=== PATIENT | male | born 1990 | race Two or more races ===

== ENCOUNTER 2023-03-28 16:44 | Inpatient (IN) | payer OTHER ==
[~2023-03-28] VITALS: Ht 182.9 cm; Wt 101.4 kg
[2023-03-28 18:09] LABS: Basophils # (auto) 0.1 10 ^3/uL (0-0.2); Basophils % (auto) 0.3 % (0.0-2.0); Eosinophils # (auto) 0.2 10 ^3/uL (0-0.8); Eosinophils % (auto) 1.2 % (0.0-7.0); Hematocrit 42.4 % (41.0-53.0); Hemoglobin 14.1 g/dL (13.5-17.5); Lymphocytes # (auto) 2.2 10 ^3/uL (0.4-5.4); Lymphocytes % (auto) 13.8 % (10.0-50.0); Mean Corpuscular Hemoglobin 28.8 pg (28.0-32.0); Mean Corpuscular Hgb Conc. 33.3 g/dL (32.0-36.0); Mean Corpuscular Volume 86.7 fL (80.0-100.0); Monocytes # (auto) 1.5 10 ^3/uL (0-1.3); Monocytes % (auto) 9.6 % (0.0-12.0); Neutrophils % (auto) 75.1 % (37.0-80.0); Red Blood Cells 4.89 10^6/uL (4.5-5.90); Red Cell Distribution Width 13.1 % (11.8-14.3)
[2023-03-28 18:28] LABS: Alanine Aminotransferase 37 U/L (7-40); Alkaline Phosphatase 84 U/L (46-116); Anion Gap 9 (5-15); BUN/Creatinine Ratio 12.2 (10.0-20.0); Blood Urea Nitrogen 10 mg/dL (9-23); Calcium 9.2 mg/dL (8.5-10.1); Carbon Dioxide 27 mmol/L (20-30); Chloride 102 mmol/L (98-107); Glucose 108 mg/dL (74-106); Potassium 3.8 mmol/L (3.5-5.1); Sodium 138 mmol/L (136-145)
[2023-03-28 18:29] LABS: Albumin 4.5 g/dL (3.2-4.8); Aspartate Aminotransferase 31 U/L (13-40); Bilirubin, Total 0.6 mg/dL (0.2-1.0)
[2023-03-28 19:20] LABS: Urine Bacteria NONE SEEN /hpf (None Seen); Urine Blood 1+ /uL (Negative); Urine Clarity Clear (Clear); Urine Color Yellow (Yellow); Urine Mucus FEW (None Seen); Urine Protein, UAD 1+ (Negative); Urine Specific Gravity 1.026 (1.001-1.035); Urine WBC 1 /hpf (0 - 3); Urine pH 6.5 (5.0-8.0)
[2023-03-28] MEDS ORDERED: MORPHINE SULFATE INJ 2 MG/ml SYRG IV PRN (21:15)
[2023-03-28] MEDS ORDERED: ONDANSETRON HCL 4 MG/2 ML VIAL IV PRN (21:15)
[2023-03-28] MEDS: D5W/SOD CHLO 0.9% 1,000 ML IV SCH (21:15)
[2023-03-28 23:05] VITALS: PULSE 18; RESP 18; O2SAT 97
[2023-03-28] MEDS: PIPERACILLIN-TAZO 4.5GM 100 ML IV ONE (23:19)
[2023-03-29] VITALS (8 sets, daily range): BP systolic 121–139; BP diastolic 68–86; PULSE 55–95; RESP 16–20; TEMP 97.9–98.6; O2SAT 95–99
[2023-03-29] MEDS: metroNIDAZOLE 500MG/100ML 100 ML IV SCH (02:09)
[2023-03-29] MEDS: MEROPENEM 1GM IVPB 50 ML IV SCH (02:09)
[2023-03-29 06:58] LABS: Basophils # (auto) 0 10 ^3/uL (0-0.2); Basophils % (auto) 0.2 % (0.0-2.0); Eosinophils # (auto) 0.1 10 ^3/uL (0-0.8); Hematocrit 38.4 % (41.0-53.0); Hemoglobin 13.1 g/dL (13.5-17.5); Lymphocytes # (auto) 2.4 10 ^3/uL (0.4-5.4); Lymphocytes % (auto) 15.8 % (10.0-50.0); Mean Corpuscular Hemoglobin 29.3 pg (28.0-32.0); Mean Corpuscular Volume 86.3 fL (80.0-100.0); Monocytes # (auto) 1.5 10 ^3/uL (0-1.3); Neutrophils # (auto) 11.3 10 ^3/uL (1.6-8.6); Red Blood Cells 4.45 10^6/uL (4.5-5.90); Red Cell Distribution Width 12.9 % (11.8-14.3); White Blood Cell 15.4 10^3/uL (4.4-10.8)
[2023-03-29 07:12] LABS: Alanine Aminotransferase 34 U/L (7-40); Alkaline Phosphatase 74 U/L (46-116); Anion Gap 8 (5-15); Calcium 9.1 mg/dL (8.7-10.4); Carbon Dioxide 27 mmol/L (20-30); Chloride 102 mmol/L (98-107); Potassium 3.5 mmol/L (3.5-5.1); Sodium 137 mmol/L (136-145)
[2023-03-29 07:14] LABS: Glucose 120 mg/dL (74-106)
[2023-03-29 07:15] LABS: BUN/Creatinine Ratio 8.9 (10.0-20.0); Blood Urea Nitrogen 7 mg/dL (9-23)
[2023-03-29 07:16] LABS: Albumin 4.4 g/dL (3.2-4.8); Aspartate Aminotransferase 19 U/L (13-40)
[2023-03-29 07:17] LABS: Bilirubin, Total 0.9 mg/dL (0.2-1.0); Total Protein 7.6 g/dL (5.7-8.2)
[2023-03-29] MEDS: cefTRIAXone 1GM/50ML D5W 50 ML IV SCH (09:07)
[2023-03-30] VITALS (7 sets, daily range): BP systolic 112–135; BP diastolic 63–79; PULSE 58–85; RESP 16–20; TEMP 98.1–98.5; O2SAT 94–97
[2023-03-30 08:43] LABS: INR 1.18 (0.9-1.15); Prothrombin Time 12.3 sec (9.3-11.8)
[2023-03-30] MEDS: OMNIPAQUE 12mg/ml 500ml ORAL SOLUTION PO ONE (23:00)
[2023-03-30] MEDS: IOHEXOL 300 MG/ML 100ML BOTTLE IJ ONE (23:00)
[2023-03-31] VITALS (7 sets, daily range): BP systolic 111–119; BP diastolic 64–78; PULSE 56–81; RESP 15–18; TEMP 97.5–98.9; O2SAT 94–98
[2023-04-01 05:09] VITALS: BP 107/56; PULSE 65; RESP 17; TEMP 97.8; O2SAT 97
[2023-04-01 08:00] VITALS: BP 105/67; PULSE 65; RESP 20; TEMP 98; O2SAT 98
[2023-04-01 08:52] VITALS: BP 105/67; PULSE 65; RESP 20; TEMP 98; O2SAT 97
[2023-04-01 12:41] VITALS: BP 117/75; PULSE 72; RESP 20; TEMP 97.9; O2SAT 96
[2023-04-01 13:35] LABS: Chloride 103 mmol/L (98-107); Potassium 3.8 mmol/L (3.5-5.1); Sodium 137 mmol/L (136-145)
[2023-04-01 13:36] LABS: Anion Gap 9 (5-15); Carbon Dioxide 25 mmol/L (20-30)
[2023-04-01 13:37] LABS: Calcium 9.3 mg/dL (8.5-10.1)
[2023-04-01 13:41] LABS: Glucose 126 mg/dL (74-106)
[2023-04-01 13:45] LABS: BUN/Creatinine Ratio 6.5 (10.0-20.0); Blood Urea Nitrogen < 5 mg/dL (9-23)
[2023-04-01 20:00] VITALS: O2SAT 97
[2023-04-01 22:00] VITALS: BP 123/82; PULSE 54; RESP 18; TEMP 97.6; O2SAT 97
[2023-04-02 04:50] VITALS: BP 112/64; PULSE 61; RESP 18; TEMP 97.8; O2SAT 97
[2023-04-02] MEDS ORDERED: IOHEXOL 300 MG/ML 100ML BOTTLE IJ ONE (07:57)
[2023-04-02 08:00] VITALS: PULSE 64; RESP 19; O2SAT 98
[2023-04-02 09:03] VITALS: BP 116/72; PULSE 64; RESP 19; TEMP 98.3; O2SAT 98
[2023-04-02] MEDS ORDERED: METR-344 PO (11:30)
[2023-04-02] MEDS ORDERED: LEVO750T8 PO (11:30)
[2023-04-02] MEDS ORDERED: TRAM50TA2 PO (11:30)
[2023-04-02 13:00] VITALS: BP 121/80; PULSE 64; RESP 20; TEMP 98.3; O2SAT 98
[2023-04-02 13:26] VITALS: BP 116/72; PULSE 64; RESP 19; TEMP 98.3; O2SAT 98
[2023-04-02 16:24] VITALS: BP 104/59; PULSE 63; RESP 18; TEMP 98.3; O2SAT 99
== END 2023-04-02 18:41 | disposition home or self-care (01) | DRG 872 ==
LOC: ER 16:44 → WEST WING 21:05 → OVERFLOW 21:05 → WEST WING 23:55
PROVIDERS: ADMIT Nurse Practitioner; ATTEND Family Medicine
DX: A41.9 Sepsis, unspecified organism (principal); K57.20 Diverticulitis of large intestine with perforation and abscess without bleeding; E86.0 Dehydration
CPT/HCPCS: 36415; 71045; 74176; 74177; 80048; 80053; 81001; 85025; 85610; 85730; 96365; G0378; J2185; J2543; J3490; J7042